=== PATIENT | female | born 1945 | race African-American/Black ===

== ENCOUNTER → 2016-07-01 | Outpatient (CLI) | payer OTHER ==
[~2016-07-01] MED LIST: ACETAMINOOPHEN-1 TAB PO; ACETAMINOPHEN PO; ACETAMINOPHEN PR; ACETAMINOPHEN650 M1 PO; ACTOS PO; ACULAR10 ML; ALBUTEROL 0.5ML INH; ALBUTEROL MININEB NEB; ALBUTEROL0.63 MG/3; ALBUTEROL0.83 MG/ML IH; ALBUTEROL17 G1 IH; ALBUTEROL17 GM; ALBUTEROL17 GM INH; AMARYL PO; ANTIVERT PO; APRESOLINE PO; ARTIFICIAL TEAR15 ML OP; ASPIRIN PO; ASPIRIN81 M1 PO; ASPIRIN81 M2 PO; ASPIRIN81 MG PO; ATIVAN PO; AVANDIA; BACLOFEN20 MG PO; BACTRIM DS TABL1 TAB PO; BAYER CHEWABLE81 MG PO; BIOFREEZE; BUMEX PO; BUTRANS TD; CITRATE OF MAG300 ML PO; CLEOCIN PO; COLACE PO; COMBIVENT MININEB; COSOPT1 UNI1 OP; CRESTOR PO; CRESTOR10 MG PO; CYANOCOBALAM1000 MCG PO; DEMADEX PO; DICLOFENAC-MIS1 EAC2 PO; DICYCLOMINE HCL20 MG PO; DIOVAN HCT 160-1 TAB; DIOVAN HCT 160-1 TAB PO; DORZOLAMIDE HCL10 M1 OP; DORZOLAMIDE HCL10 M1 OU; DUETACT; EPLERENONE25 MG PO; FLUCONAZOLE150 M1 PO; GABAPENTIN300 M2 PO; GABAPENTIN300 MG PO; GLIMEPIRIDE1 M1 PO; GLUCOPHAGE500 MG PO; HUMALOG MI100 UNIT/1; HUMALOG MI100 UNIT/1 SUBQ; HUMALOG MI100 UNIT/2 SQ; HUMALOG MI100 UNIT/2 SUBQ; HUMALOG MI100 UNIT/5; HUMALOG MIX 75/10 ML; HUMALOG MIX 75/10 ML SQ; HUMALOG MIX 75/10 ML SUBQ; HUMALOG MIX 75/23 M1 SQ; HUMALOG MIX 75/23 ML SUBQ; HUMULIN R100 U/ML SUBQ; HYDRALAZINE HC100 MG PO; HYDRALAZINE HCL50 MG PO; HYDROCHLOROTH12.5 M1 PO; HYDROCHLOROTHIA25 MG PO; HYDROCODON-ACE1 EAC5 PO; HYDROCODON-ACE1 EAC7 PO; HYDROCODON-ACE1 EACH PO; HYDROXYZINE HCL25 M1 PO; INSULIN PEN1 DIS.NDL INJ; ISMO20 MG; ISORDIL PO; K-DUR20 ME1 PO; KEPPRA500 M2 PO; LANTUS100 U/ML SQ; LASIX20 MG PO; LEVAQUIN PO; LEVEMIR FLEX PEN INJ; LEVEMIR FLEXPEN INJ; LEVEMIR FLEXPEN SUBQ; LEVOFLOXACIN500 MG PO; LIDODERM30 EA; LIPITOR40 MG PO; LISINOPRIL PO; LODINE PO; LOPRESSOR; LOPRESSOR PO; LORTAB 10-3251 EACH PO; LOW DOSE ASPIRI81 M1 PO; LYRICA PO; MECLIZINE HCL12.5 M2 PO; METFORMIN; METFORMIN PO; METHOCARBAMOL500 MG PO; METRONIDAZOLE PO; MIRALAX17 G2 PO; NABUMETONE PO; NEURONTIN100 MG PO; NIFEDICAL PO; NIFEDIPINE XR PO; NORCO 10/3251 TAB; NORVASC10 MG PO; OMNIPRED10 ML OP; ONGLYZA2.5 MG PO; ONGLYZA5 MG PO; OXYCODONE-ACET1 EAC1 PO; OXYGEN; OXYGEN IH; PAIN PATCH; PATIENT'S PHARMACY; PERCOCET10 PO; PHYSICIAN; POTASSIUM CHLO10 MEQ PO; PRAVASTATIN SOD40 MG PO; PRED FORTE1 ML OP; PRED FORTE1 ML OS; PRED FORTE1 ML OU; PRED MILD5 ML OU; PREDNISOLONE ACETATE OU; PREDNISONE EYE DROPS OP; PREDNISONE PO; PROAIR HFA INH; PROAIR HFA8.5 GM IH; PROAIR INH; PROCARDIA XL PO; PROMETHAZINE V240 ML PO; REQUIP0.5 MG PO; REQUIP1 MG PO; REQUIP5 MG PO; ROBAXIN PO; ROPINIROLE HCL0.5 MG PO; ROPINIROLE HCL4 MG PO; SANDOSTATIN LAR30 MG IM; SENNA PO; SULAR; SULAR PO; SULF-PRED 10-0.10 ML; SYMBICORT 16010.2 GM INH; SYMBICORT IH; SYMBICORT INH; TENORMIN25 M1 PO; TENORMIN25 MG PO; TIMOPTIC2.5 ML OP; TIMOPTIC2.5 ML OU; TIMOPTIC5 ML OU; TOPROL XL; TOPROL XL 50 MG50 M1 PO; TORSEMIDE10 MG PO; TRAMADOL HCL50 M1 PO; TRUSOPT10 ML OD; TRUSOPT5 ML OD; TRUSOPT5 ML OP; TRUSOPT5 ML OU; VASOCIDIN O5 ML OPTH OS; VICODIN 5/500 T1 TAB PO; VITAMIN B12-FO1 EACH PO; VOLTAREN100 GM TP; VOLTAREN50 MG PO; VOLTAREN75 MG PO; XODOL 10-300 T1 EACH PO; ZANAFLEX4 M1 PO; ZAROXYLYN PO; ZETIA PO; ZITHROMAX500 MG PO; ZOCOR; ZOCOR PO; ZOFRAN PO; [UNRECOGNIZED DRUG - OTHER]; [UNRECOGNIZED DRUG - OTHER] OP; [UNRECOGNIZED DRUG - OTHER] OP
--- NOTE | ~2016-07-01 | CT5 ---
[facility] A Service of [facility] RADIOLOGY TEXT RESULTS PATIENT: KASH ASCENCIO LOCATION: [facility] : 44 UNIT #: [id number] AGE: [address]: Levar Jorge MD SEX: F ORDER DR: [id number] [place] [id number] [facility]. [place], [place] [address] [id number] O MR#: [id number] [facility] #: [id number] NAME: KASH ASCENCIO. : 1945 SEX: F STUDY DATE/TIME: 07/01/2016 9:12 UNIT: [facility] ROOM: STUDY DESCRIPTION: CT Abdomen W Cont Attending Physician: Levar Jorge M.D. Ordering Physician: Levar Jorge M.D. Primary Care Physician: Wilman Mcghee M.D. MEDICAL IMAGING REPORT This report is preliminary unless electronic signature is present EXAM CT abdomen with contrast. INDICATION Follow up liver cancer. Restaging. Patient status post 3 months of chemotherapy. Observation for response to therapy and disease progression. PROCEDURE Contrast-enhanced CT of the abdomen. This CT exam was performed with one or more of the following radiation dose reduction techniques: automatic exposure control, adjustment of mA and/or kV according to patient size, and iterative reconstruction. COMPARISON 03/16/2016 FINDINGS Included lung bases predominately clear. Redemonstration multifocal hepatic metastatic disease. An index dominant lesion in the central liver measures 7.3 x 4.8 cm, previously 6.3 x 3.5 cm. Multiple other lesions have increased in size as well. It is impossible to exclude a new lesion. Spleen, adrenal glands, pancreas unremarkable. 2.5 cm cyst in the left kidney. There is a lap band in place. The included bowel loops are nondilated. No aggressive appearing bone lesion. IMPRESSION Interval progression of hepatic metastatic disease. Index lesions are larger than on the prior. [facility] A Service of [facility] RADIOLOGY TEXT RESULTS PATIENT: KASH ASCENCIO LOCATION: [facility] : 44 UNIT #: [id number] AGE: [address]: Levar Jorge MD SEX: F ORDER DR: Dictated by... David Dempsey M.D. THIS IS AN ELECTRONICALLY VERIFIED REPORT David Dempsey M.D. at 07/01/2016 4:51 PM RUD/jose TD: 07/01/2016 11:59 JOB #: [id number] MEDICAL IMAGING REPORT Page 1 of 1 COPY
[2016-07-01 12:06] LABS: POC - CREATININE 0.76 mg/dL (0.44-1.03); POC - GFR >60.0 mL/min (>60)
== END | disposition home or self-care (01) ==
LOC: CCAT 08:51
PROVIDERS: Internal Medicine Medical Oncology
DX: C22.8 Malignant neoplasm of liver, primary, unspecified as to type (principal); D64.9 Anemia, unspecified; D50.9 Iron deficiency anemia, unspecified; R91.1 Solitary pulmonary nodule; C78.7 Secondary malignant neoplasm of liver and intrahepatic bile duct
CPT/HCPCS: 74160; 82565; Q9967

== ENCOUNTER → 2016-07-07 | Outpatient (CLI) | payer OTHER ==
--- NOTE | ~2016-07-07 | CT57 ---
[facility] A Service of [facility] & [facility] RADIOLOGY TEXT RESULTS PATIENT: KASH ASCENCIO [facility] : 44 UNIT #: [id number] AGE: [address]: Levar Jorge MD SEX: F ORDER DR: [id number] [address] [address] [id number] O MR#: [id number] [facility] #: [id number] NAME: KASH ASCENCIO. : 1945 SEX: F STUDY DATE/TIME: 07/07/2016 17:02 UNIT: [facility] ROOM: STUDY DESCRIPTION: CT Chest Wo Cont Attending Physician: Levar Jorge M.D. Referring Physician: Levar Jorge M.D. Ordering Physician: Levar Jorge M.D. Primary Care Physician: Wilman Mcghee M.D. MEDICAL IMAGING REPORT This report is preliminary unless electronic signature is present EXAM CT chest INDICATIONS Hepatocellular carcinoma. Pulmonary nodule. Observation for metastatic disease. TECHNIQUE CTA of the thorax without contrast. Coronal and sagittal reconstructions were obtained. Please note that IV contrast was not administered due to lack of IV access. Multiple attempts were tried to gain IV access, however it was unsuccessful. This CT exam was performed with one or more of the following radiation dose reduction techniques: Automatic exposure control, adjustment of mA and/or kV according to patient size, and iterative reconstruction. COMPARISON CT abdomen 12/24/2015 and 07/01/2016. FINDINGS There is an irregular pulmonary nodule in the lingula measuring 1.6 x 1.5 cm. This is unchanged from the prior PET CT where it measured 1.7 x 1.7 cm. At that time, it had equivocal FDG uptake. There are a few tiny 2-3 mm nodules in the right lung; these are unchanged. Central airways are patent. No pathologically enlarged mediastinal or hilar lymph nodes. No pericardial or pleural effusion. There is diffuse metastatic disease throughout the liver. As indicated on the recent CT scan, this has increased in size from the prior study of 12/24/2015. [facility] A Service of [facility] & [facility] RADIOLOGY TEXT RESULTS PATIENT: KASH ASCENCIO LOCATION: [facility] : 44 UNIT #: [id number] AGE: [address]: Levar Jorge MD SEX: F ORDER DR: IMPRESSION 1. No evidence of disease progression in the chest. There is an irregular pulmonary nodule in the lingula that is similar to the prior study. 2. No new or suspicious findings in the chest. 3. Please refer to the separate dictated report of the abdomen for details of the disease progression in the liver. Dictated by... Nic Mendez M.D. THIS IS AN ELECTRONICALLY VERIFIED REPORT Nic Mendez M.D. at 07/08/2016 7:54 AM GORDON/marylou TD: 07/07/2016 22:19 JOB #: [id number] MEDICAL IMAGING REPORT Page 1 of 1 COPY
--- NOTE | ~2016-07-07 | CR48 ---
[facility] A Service of [facility] & [facility] RADIOLOGY TEXT RESULTS PATIENT: KASH ASCENCIO [facility] : 44 UNIT #: [id number] AGE: [address]: Levar Jorge MD SEX: F ORDER DR: [id number] [facility] [address] [facility]. [place], [place] [address] [id number] O MR#: [id number] [facility] #: [id number] NAME: KASH ASCENCIO. : 1945 SEX: F STUDY DATE/TIME: 07/07/2016 14:32 UNIT: [facility] ROOM: STUDY DESCRIPTION: CR Bone Survey Attending Physician: Levar Jorge M.D. Referring Physician: Levar Jorge M.D. Ordering Physician: Levar Jorge M.D. Primary Care Physician: Wilman Mcghee M.D. MEDICAL IMAGING REPORT This report is preliminary unless electronic signature is present EXAM Bone survey 07/07/2016 1432 hours CLINICAL HISTORY Iron deficiency anemia, malignant neoplasm of the liver, history of brain tumor, bilateral lower extremity pain, lateral old left femoral pain unknown primary. COMPARISON PET/CT 01/06/2016 CT chest 07/07/2016, CT abdomen 07/01/2016 and nuclear medicine bone scan 12/24/2015. FINDINGS Lateral view of the skull demonstrates a prior craniotomy site with fixators present. There is hyperostosis frontalis interna but no lytic or blastic lesion. Review of head CT at bone window settings 05/03/2016 demonstrates no definite acute bone lesion. Chest film demonstrates emphysematous bleb or bulla at the left lung base. There is no definite acute bone lesion. The right humerus is normal. Left humerus demonstrates degenerative changes of the shoulder. No definite lytic or blastic lesion is seen on plain film. There was uptake on the PET/CT in the midshaft humerus without definite plain film correlate on 1 view. Pelvis film demonstrates enthesopathic changes over the iliac crests and the greater trochanter on the right. There is no definite lytic or blastic lesion. The left femur, there is no definite femoral lesion. There is no correlate to the faint activity seen on bone scan 12/24/2015. No appreciable change in the appearance of the femur from 12/24/2015. [facility] A Service of [facility] & [facility] RADIOLOGY TEXT RESULTS PATIENT: KASH ASCENCIO LOCATION: [facility] : 44 UNIT #: [id number] AGE: [address]: Levar Jorge MD SEX: F ORDER DR: Right femur is negative. Cervical spine demonstrates multilevel degenerative disc disease with spurring and facet arthropathy. No lytic or blastic lesion. The thoracic spine demonstrates diffuse idiopathic skeletal hyperostosis without definite lytic or blastic lesion. Lumbar spine demonstrates no lytic or blastic lesion. No significant disc height loss or fracture. IMPRESSION 1. Negative bone survey. There are no definite lytic or blastic lesions. There are degenerative changes as described above. Specifically, there is no definite correlate for the MR and nuclear medicine finding in the midshaft humerus. 2. There is no definite lesion seen in the distal femur or faint activity was seen on prior bone scan. 3. No definite new lesions. Dictated by... Kelly Tejeda M.D. THIS IS AN ELECTRONICALLY VERIFIED REPORT Kelly Tejeda M.D. at 07/08/2016 2:30 PM Paige TD: 07/08/2016 10:31 JOB #: [id number] MEDICAL IMAGING REPORT Page 1 of 1 COPY
[2016-07-07 16:11] LABS: POC - CREATININE 0.95 mg/dL (0.44-1.03); POC - GFR >60.0 mL/min (>60)
== END | disposition home or self-care (01) ==
LOC: CCAT 14:11
PROVIDERS: Internal Medicine Medical Oncology
DX: C22.8 Malignant neoplasm of liver, primary, unspecified as to type (principal); D50.9 Iron deficiency anemia, unspecified; R91.1 Solitary pulmonary nodule; M47.812 Spondylosis without myelopathy or radiculopathy, cervical region
CPT/HCPCS: 71250; 77075; 82565

== ENCOUNTER 2016-07-08 21:50 | Inpatient (IN) | payer OTHER ==
--- NOTE | ~2016-07-08 | CO ---
Unit #: [id number] #: [id number] Patient: KASH ASCENCIO [id number] [address] [place], [place] [address] [id number] I MR#: [id number] NAME: KASH ASCENCIO ROOM: 327 Age: 71 Sex: F Admission Date: 07/08/2016 : 1945 Attending Physician: Suzanne Nieves M.D. Primary Care Physician: Wilman Mcghee M.D. Consultation Date: 07/09/2016 CONSULTATION REPORT REASON FOR CONSULT Metastatic neuroendocrine tumor, please evaluate. 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 She was treated with radiation to the left humerus and Sandostatin monthly injections and responded well initially but recently about a month ago came back and was showing signs and symptoms of hepatic insufficiency with multiple bruises, so she was treated with vitamin K and sent for re-evaluation. CT scan of the abdomen showed progressive liver metastases and a bone survey showed nearly complete resolution of the left humerus mass lesion. Presents now and states that when she went for those scans they had difficulty starting an IV in the left arm, so they went to the right arm and they had to call somebody from the emergency room who kept on trying and went very deep. She felt severe pain and subsequently the CT scan was done without contrast but since then she started having severe pain in the right upper arm. PAST MEDICAL HISTORY Past history is mainly remarkable for this neuroendocrine tumor, status post radiation and Sandostatin LAR therapy. 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 FAMILY HISTORY Negative for unexplained cancers. SOCIAL HISTORY Nonsmoker. No alcohol usage. Has a very supportive family. CHRONIC MEDICATIONS 1. Hydralazine. 2. Neurontin. 3. Vicodin. 4. Requip. 5. Amaryl. ALLERGIES No known allergies. REVIEW OF SYSTEMS Mainly tiredness, weakness, swelling and pain in the right upper arm. Unit #: [id number] #: [id number] Patient: KASH ASCENCIO Otherwise, six or eight systems were within normal limits. PHYSICAL EXAMINATION GENERAL: On exam, she is awake, alert, complaining of severe pain right upper arm. No supraclavicular, axillary, or groin nodes. LUNGS: Essentially clear. CARDIOVASCULAR: Distant S1, S2. ABDOMEN: Liver is 13 cm midclavicular line, mildly tender, and by percussion only because the abdominal wall is thick, difficult to palpate the liver. CENTRAL NERVOUS SYSTEM: Grossly intact. PELVIC: Not performed. BREASTS: Not performed. EXTREMITIES: Right upper extremity exam shows possible small hematoma and lower extremity exam on the right posterior side there is a palpable mass and there are multiple bruises. HOSPITAL COURSE This 71 year old lady with stage IV neuroendocrine tumor involving the liver and left humerus, status post radiation and Sandostatin LAR therapy for six to eight months has done fairly well until recently. There is evidence of progressive disease in the liver. The left humerus looks very well per scan but now she has what appears to be multiple bruises on the legs and a possible hematoma on the right upper extremity where multiple attempts were made to start on IV. DIAGNOSTIC STUDIES LABORATORY: CBC: Hemoglobin 6.1, hematocrit 19.3, white count 5600, platelets 45,000. Sodium 142, potassium 4, chloride 109, CO2 of 23, glucose 146, BUN 25, creatinine 0.7. Pro time 19.5 with INR of 1.8. IMPRESSION Coagulopathy related to hepatic metastatic disease in this lady with stage IV neuroendocrine tumor with evidence of progressive disease in the liver and multiple bruises, hematomas. The one significant one is right upper extremity where it is tender to touch. PLAN Will agree with packed red blood cells. Will infuse fresh frozen plasma 2 units at 100 mL an hour to correct the pro time. Also, give vitamin K 10 mg in 30 mL over 15-30 minutes hoping to achieve correction of the coagulopathy, although with such extensive liver metastases it is going to be difficult. After the transfusion if she develops debility, we may consider chemotherapy. Dictated by... Cassandra Hoang/bambi TD: 07/11/2016 12:36 JOB #: [id number] Unit #: [id number] #: [id number] Patient: KASH ASCENCIO CONSULTATION REPORT Page 1 of 1 X Levar Jorge MD CONSULTATION REPORT
--- NOTE | ~2016-07-08 | DS ---
Unit #: [id number] #: [id number] Patient: KASH ASCENCIO [id number] [address] [address] [id number] I MR#: [id number] NAME: KASH ASCENCIO. ROOM: 327 Age: 71 Sex: F Admission Date: 07/08/2016 : 1945 Discharge Date: Attending Physician: Suzanne Nieves M.D. Primary Care Physician: Wilman Mcghee M.D. DISCHARGE SUMMARY DISCHARGE DIAGNOSES 1. Metastatic stage 4 neuroendocrine tumor involving liver and left humerus: Patient had radiation and Sandostatin LAR therapy for six to eight months. 2. Pancytopenia. 3. Severe anemia, most likely secondary to cancer and chemotherapy versus acute bleeding. 4. Right upper extremity hematoma. 5. Severe thrombocytopenia. 6. Morbid obesity. 7. History of diabetes mellitus type 2, uncontrolled. 8. Hypertension. 9. Hyperlipidemia. 10. History of cerebrovascular accident with left sided weakness. 11. Glaucoma. 12. Gastritis. 13. History of grain tumor, benign. 14. Degenerative disc disease. 15. Intractable left arm pain. CONSULTATIONS 1. Dr. Jorge. 2. Dr. Greer. PROCEDURES None. LAB DATA Glucose 173, sodium 143, potassium 4.5, creatinine 0.9, AST 49, AL 40, alkaline phosphatase 198, total bilirubin 1.8, total protein 5.7, albumin 3.7, WBC 8.2, hemoglobin 7.5, platelets 56. ALLERGIES Lisinopril, lactose and metformin. DISCHARGE MEDICATIONS 1. Albuterol one puff inhalation q.4 p.r.n. shortness of breath. 2. Prednisone eyedrops b.i.d. in the left eye. 3. Gabapentin 300 three times daily. 4. Requip 0.5 mg p.o. b.i.d. 5. Trusopt one drop bilaterally b.i.d. ophthalmic solution. 6. Colace 100 p.o. b.i.d. 7. MiraLAX 17 grams p.o. daily. 8. Hydralazine 100 b.i.d. Unit #: [id number] #: [id number] Patient: KASH ASCENCIO 9. [place]irie 10 mg q.6 p.r.n. pain. 10. Amaryl 1 mg p.o. daily. HOSPITALIZATION COURSE 71-year-old admitted because of axial bruising and anemia. Stage 4 metastatic neuroendocrine tumor involving metastases to liver and left humerus: Patient did receive radiation and Sandostatin LAR treatment for six to eight months. Currently, her hemoglobin is severely low requiring multiple transfusions. She has severe thrombocytopenia requiring multiple platelet transfusions. She is also excessively bleeding. She bled in her right arm causing right arm hematoma. Vascular saw the patient. They think she did not compromise any blood supply to the arm. Rocephin has been started to rule out cellulitis but, currently, she does not look infected there. Rocephin will be discontinued. Because of progressive disease and progressive pancytopenia, Dr. Jorge talked to the family. They decided on hospice. Today, patient will be discharged home with hospice. Severe pancytopenia secondary to cancer and also from treatment: Patient received multiple transfusions. Currently, hemoglobin is 7.5, platelets 56. Right upper extremity hematoma from severe thrombocytopenia: Vascular saw the patient. Patient was on Rocephin. I am going to discontinue because she doesn't look infected. Diabetes and hypertension, stable. Discussed with son and other family members. They want her to take home with hospice. Dr. Jorge talked to the family extensively on 07/14/2016. They agree for hospice. Discharge home with hospice. Discharge time taken is 40 minutes. Dictated by... Cassandra Catherine TD: 07/15/2016 11:42 JOB #: [id number] DISCHARGE SUMMARY Page 1 of 1 X Suzanne Nieves MD X DISCHARGE SUMMARY
--- NOTE | ~2016-07-08 | OR ---
Unit #: [id number] #: [id number] Patient: KASH ASCENCIO [id number] [address] [place], [place] [address] [id number] I MR#: [id number] NAME: KASH ASCENCIO ROOM: [facility] Date of Procedure: 07/09/2016 Admission Date: 07/09/2016 Surgeon: Ronaldo Calix M.D. : 1945 Attending Physician: Kendal Lopez M.D. Primary Care Physician: Wilman Mcghee M.D. OPERATIVE REPORT PRIMARY CARE PHYSICIAN Wilman Mcghee M.D. PREOPERATIVE DIAGNOSES The patient has a history of increasing fatigue and at admission, hemoglobin of 6.1, her baseline hemoglobin in April was between 11 and 12. There is no history of overt GI bleed in the form of hematemesis, melena, or hematochezia. PROCEDURE PERFORMED Upper gastrointestinal endoscopy. POSTOPERATIVE DIAGNOSIS There were mild distal erosive esophagitis with some whitish exudates in this area. This was biopsied, otherwise examination normal up to third part of duodenum. RECOMMENDATIONS There is no potential source of blood loss in the upper GI tract. The patient is too frail for colonoscopic examination at the present time. We will therefore transfuse the patient and monitor hemoglobin and hematocrit. PROCEDURE SEDATION Total of 2 mg Versed was used throughout the procedure. DESCRIPTION OF PROCEDURE Following detailed explanation of the potential risks and complications of an upper endoscopy, namely perforation, bleeding, and complication related to sedation, the patient was brought to GI lab and the patient was laid in the left lateral decubitus position. The procedure was done in the emergency room at bedside. Lubricated tip of the Olympus video upper endoscope was passed through bite block into the proximal esophagus under direct vision. The entire esophageal mucosa was examined. The patient was noted to have distal esophagitis. This was primarily 1 or 2 cm above the Z-line in the form of whitish exudates. No stricture was seen. The scope was then advanced into the gastric cavity and the latter was insufflated. Mucosa of the fundus, body, and antrum examined and appeared unremarkable. Pylorus was intubated with visualization of normal duodenal bulb and second and third part of the duodenum. Upon withdrawal and retroflexion, incisura, cardia, and greater curve examined and no additional findings noted. The scope was withdrawn in the distal esophagus. Entire esophageal mucosa was examined all the way up to Unit #: [id number] #: [id number] Patient: KASH ASCENCIO pharynx. No additional findings noted. The patient tolerated the procedure without any postprocedure complications. Dictated by... Cassandra Gonzales/juan TD: 07/10/2016 01:00 JOB #: [id number] CC: Cassandra Reeder M.D. Osawaru Omoruyi, M.D. OPERATIVE REPORT Page 1 of 1 X Ronaldo Calix MD X PROCEDURE OPERATIVE NOTE
--- NOTE | ~2016-07-08 | EKG ---
PATIENT: KASH ASCENCIO UNIT #: [id number] Ventricular Rate: 79 BPM Atrial Rate: 79 BPM P-R Interval: 138 ms QRS Duration: 84 ms Q-T Interval: 396 ms QTC Calculation(Bezet): 454 ms P Forbes: 43 degrees Calculated R Forbes: 5 degrees Calculated T Forbes: 51 degrees Diagnosis Line: Normal sinus rhythm Diagnosis Line: Normal ECG Diagnosis Line: When compared with ECG of 03-MAY-2016 03:54, Diagnosis Line: Criteria for Septal infarct are no longer Present Diagnosis Line: Confirmed by MJ CASTANON MD ([id number]) on 07/10/2016 Diagnosis Line: 4:29:40 PM INTERPRETING MD: LG ALMONTE
--- NOTE | ~2016-07-08 | HP ---
Unit #: [id number] #: [id number] Patient: KASH ASCENCIO [id number] [address] [address] [id number] I MR#: [id number] NAME: KASH ASCENCIO ROOM: 54312 Age: 71 Sex: F Admission Date: 07/09/2016 : 1945 Attending Physician: Kendal Lopez M.D. Primary Care Physician: Wilman Mcghee M.D. HISTORY AND PHYSICAL CHIEF COMPLAINT 1. Excessive bruising. 2. Symptomatic anemia. HISTORY OF PRESENT ILLNESS The patient is a 69-year-old female with a history of hypertension, hyperlipidemia, history of cerebrovascular accident, benign brain tumor and history of questionable liver cancer. The patient came to the emergency room for excessive bleeding. She was seen a day prior for cancer screening. No evidence of progression on CT scan of her chest and no new suspicious lesions. She does have bruises all over her extremities and her buttock. Bruising has been present for the past one week. The patient also complains of right antecubital area redness and swelling for the past two days. She states that this was the site for instrumentation for possible attempt to place a PICC line. Other than that, she describes tenderness over that place and the place is painful to touch. The patient is status post EGD per Dr. Ronaldo Calix and is somewhat drowsy. History is obtained from patient, collateral sources, and family members who are present at the time of this dictation. PAST MEDICAL HISTORY 1. Diabetes mellitus. 2. Hypertension. 3. Hyperlipidemia. 4. History of cerebrovascular accident. 5. Residual left-sided weakness. 6. Asthma. 7. Glaucoma. 8. Gastritis. 9. Morbid obesity. 10. Benign brain tumor. 11. Degenerative disk disease. 12. Intractable left arm pain. PAST SURGICAL HISTORY 1. Cardiac catheterization in 2007. 2. Evidence of benign brain tumor. 3. Cholecystectomy. 4. Hysterectomy. 5. Left ear surgery. 6. Lap band surgery. SOCIAL HISTORY The patient lives with her son and . No tobacco use or alcohol use Unit #: [id number] #: [id number] Patient: KASH ASCENCIO or illicit drug use. CODE STATUS Unable to ascertain at this time, but from previous documentation she is documented as a full code. FAMILY HISTORY Noted for emphysema in her daughter. ALLERGIES Lisinopril and metformin. HOME MEDICATIONS 1. Hydralazine 100 mg p.o. b.i.d. 2. Gabapentin 300 mg p.o. b.i.d. 3. Onglyza 5 mg p.o. q. morning. 4. [place] 10/325 mg 1 tablet q.6 h. 5. Ventolin 1 puff inhalation q.4 h. 6. Trusopt 1 drop each eye daily. 7. Glimepiride 1 mg p.o. daily. 8. Requip 0.5 mg p.o. b.i.d. 9. Lipitor 40 mg p.o. q. morning. 10. Vasocidin. REVIEW OF SYSTEMS She describes pain in her right arm antecubital fossa. She is drowsy at this time, so review of systems is limited, even though she states that she has been having skin bumps all over her lower extremities and her buttock. Limited at this time. PHYSICAL EXAMINATION GENERAL: The patient was drowsy, but in no acute distress. VITALS: Blood pressure 146/56, pulse 72, respiratory rate 13, temperature 97.0. HEENT: Erythematous. Pupils are equal and reactive to light and accommodation. NECK: Supple without thyromegaly. CHEST: Breath sounds in the lung bases posteriorly. HEART: First and second heart sounds only. ABDOMEN: Full. Moves with respiration. Soft. EXTREMITIES: She has some tenderness and redness over her right antecubital fossa. There is an area measuring about 10 cm x 6 cm, soft and warm to touch. She had an area of her left thigh with some ecchymosis and what feels like a subcutaneous hematoma. She had an area of her right upper thigh which also showed an area of ecchymosis and recent subdermal bleeding. LYMPH: No lymphadenopathy that I could appreciate. NEUROLOGIC: FINGER GRIP MACHINE OPERATOR, awake and alert times two. She is really drowsy and post Versed 2 mg for conscious sedation. PSYCHIATRIC: Limited at this time. DIAGNOSTIC STUDIES LABORATORY: CBC and BMP which showed hemoglobin 6.1, hematocrit 19.2, platelets 45, white blood cell count 5.6. She also had chemistries, glucose 146, BUN 25, creatinine 0.7, sodium 142, potassium 4.0, chloride 109, bicarbonate 23, calcium 8.1, albumin 3.2, AST 43, ALT 45 and alkaline phosphatase 233. Unit #: [id number] #: [id number] Patient: KASH ASCENCIO ASSESSMENT 1. Bruising, thrombocytopenia, probably secondary to underlying malignancy and process. Hematology and oncology have been consulted. 2. Anemia. She is status post blood transfusion. Will check a CBC and BMP in the morning. 3. Right antecubital fossa swelling and redness. I put her on IV Rocephin 1 g q.24 h. for presumed infection. I will get a right upper extremity Doppler to evaluate for thrombosis of sorts and will address accordingly. She is currently hypercoagulable with an INR of 1.8. 4. Liver cancer. I do not see a diagnosis anywhere but from the family's history. There seems to be a history of liver cancer. Again, will consult oncology to determine with status of this, if it truly exists. 5. Coagulopathy. Probably secondary to malignant process going on. 6. Hypertension. She is currently somewhat hypotensive from anesthesia. 7. Family history of CVA with left-sided residual weakness. Stable at this time. 8. Diabetes mellitus type 2. Put her on Accu-Cheks morning and evening and get low-dose sliding scale. 9. Pain. For her pain we will continue her home pain medication. She may require IV p.r.n., which I will be more than happy to give. Dictated by Cassandra Alvarado/minal TD: 07/09/2016 11:58 JOB #: [id number] CC: Wilman Mcghee M.D. HISTORY AND PHYSICAL Page 1 of 1 X Kendal Lopez MD HISTORY AND PHYSICAL
--- NOTE | ~2016-07-08 | US140 ---
[facility]. [facility] A Service of [facility] RADIOLOGY TEXT RESULTS PATIENT: KASH ASCENCIO LOCATION: [facility] 327-01 : 44 UNIT #: [id number] AGE: [address]: Kendal Lopez MD SEX: F ORDER DR: [id number] [facility] [address] [place], [place] [address] [id number] I MR#: [id number] Acc #: [id number] NAME: KASH ASCENCIO. : 1945 SEX: F STUDY DATE/TIME: 07/09/2016 12:02 UNIT: CEDOF ROOM: 91349 STUDY DESCRIPTION: US UE Veins Unilat or Ltd Stdy Attending Physician: Kendal Lopez M.D. Ordering Physician: Kendal Lopez M.D. Primary Care Physician: Wilman Mcghee M.D. MEDICAL IMAGING REPORT This report is preliminary unless electronic signature is present EXAM Right upper extremity venous duplex. DATE OF EXAM 07/09/2016 HISTORY Right upper extremity pain and swelling for 2 days. Right upper extremity IV placement attempt at 2 days ago, arm has been swollen since. Evaluate for deep vein thrombosis. FINDINGS Dale-scale images of the right upper extremity were obtained as well as Doppler waveform, spectral analysis and color flow Doppler imaging. There is normal blood flow and compressibility in the right internal jugular vein as well as right subclavian, axillary, brachial, cephalic and basilic veins. There is no evidence of deep vein thrombosis in the right upper extremity. The right upper extremity edema is noted. IMPRESSION 1. No evidence of deep vein thrombosis in the right upper extremity. 2. Right upper extremity edema. Dictated by... Andrey Ji M.D. THIS IS AN ELECTRONICALLY VERIFIED REPORT Andrey Ji M.D. at 07/10/2016 1:11 PM ARNAV/carol TD: 07/09/2016 15:13 JOB #: [id number] [facility] A Service of [facility] / [facility] RADIOLOGY TEXT RESULTS PATIENT: KASH ASCENCIO LOCATION: [facility] 327-01 : [birth year] UNIT #: [id number] AGE: [address]: Kendal Lopez MD SEX: F ORDER DR: MEDICAL IMAGING REPORT Page 1 of 1 COPY
--- NOTE | ~2016-07-08 | CO ---
Unit #: [id number] #: [id number] Patient: KASH ASCENCIO [id number] [address] [address] [id number] I MR#: [id number] NAME: KASH ASCENCIO. ROOM: 327 Age: 71 Sex: F Admission Date: 07/08/2016 : 1945 Attending Physician: Suzanne Nieves M.D. Primary Care Physician: Wilman Mcghee M.D. Consultation Date: 07/11/2016 CONSULTATION REPORT DICTATED FOR Brittny Greer M.D. REASON FOR CONSULTATION Right upper extremity cellulitis. HISTORY OF PRESENT ILLNESS The onset was 2 days ago. Location is right upper extremity and the duration is ongoing, it has been aggravated. The patient was seen 2 days ago for a CT scan outpatient for cancer screening due to multiple sticks in her right arm due to very difficult access. She continued to have swelling, hot to the touch, and very painful overnight. She was brought to the emergency room for this reason. PAST MEDICAL HISTORY 1. Diabetes. 2. Hypertension. 3. Hyperlipidemia. 4. History of CVA. 5. Asthma. 6. Gastritis. 7. Residual left-sided weakness. 8. Glaucoma. 9. Morbid obesity. 10. Intractable left arm pain. 11. Benign brain tumor. 12. Degenerative disk disease. ALLERGIES She is allergic to JAREN inhibitors, metformin, and lisinopril. HOME MEDICATIONS Hydralazine 100 mg p.o. b.i.d., gabapentin 300 mg p.o. b.i.d., Onglyza 5 mg p.o. every morning, [place] 10/325 one tablet every 6 hours, Ventolin 1 puff inhalation every 4 hours, Trusopt 1 drop each eye daily, glimepiride 1 mg p.o. daily, Requip 0.5 mg p.o. b.i.d., Lipitor 40 mg p.o. daily, Vasocidin dosage unknown. SOCIAL HISTORY She lives with her son and . She does not work. She is a nonsmoker. No alcohol. No drug use. FAMILY HISTORY Unit #: [id number] #: [id number] Patient: KASH ASCENCIO She has a family history of emphysema known in her daughter. Denies any history with her parents. REVIEW OF SYSTEMS CONSTITUTIONAL: No fever, chills, or sweats. EYES: No recent visual problems. EAR, NOSE, MOUTH, AND THROAT: No ear pain, nasal congestion, or sore throat. RESPIRATORY: No shortness of breath or cough. CARDIOVASCULAR: No chest pain, palpitations, or syncope. GASTROINTESTINAL: No nausea, vomiting, or diarrhea. GENITOURINARY: No hematuria. HEMATOLOGY AND LYMPHATIC: She is positive for bruising in her bilateral lower extremities and right forearm, no swollen lymph glands. ENDOCRINE: No excessive thirst or excessive hunger. MUSCULOSKELETAL: Denies back pain, neck pain, joint pain, muscle pain, or decreased range of motion. INTEGUMENTARY: She does have bruising to her right upper extremity with pain, no sores or nonhealing wounds. NEUROLOGIC: Alert and oriented x3. PSYCHIATRIC: No anxiety, depression, or suicidal thoughts or ideation. PHYSICAL EXAM VITAL SIGNS: Temperature is 97.6, heart rate is 70, respirations 18, O2 saturation is 100%. GENERAL APPEARANCE: She is a well-developed, well-nourished, in no acute distress. HEENT: She is normocephalic. Pupils equal, round, and reactive to light, she is unable to see due to issues with glaucoma. NECK: Supple, nontender with lymphadenopathy, masses, thyromegaly. No carotid bruits noted. CARDIAC: Regular rate and rhythm. No murmurs. No peripheral edema, cyanosis, or pallor. LUNGS: Clear to auscultation bilaterally. ABDOMEN: Positive bowel sounds. Soft, nontender, no distention. No masses or hepatomegaly. MUSCULOSKELETAL: She moves all extremities, full range of motion. Normal muscular development. EXTREMITIES: Upper extremities; right upper extremity has positive ecchymosis, positive erythema, positive tender to palpation, approximately 10 cm x 6 cm area of the right inner arm with positive edema from axilla to wrist on the right upper extremity. Normal left upper extremity. Lower extremities, no deformity noted. No edema. VASCULAR: Palpable radial pulses bilaterally. Femoral pulses palpable bilaterally. Pedal pulses palpable bilaterally. INTEGUMENTARY: Warm and dry. No sores or open healing wounds. No hemosiderin disposition. NEUROLOGIC: Cranial nerves II through XII grossly intact. Normal strength and sensation bilaterally. PSYCHIATRIC: Oriented to person, place, and time. Demonstrates good judgment and reason. DIAGNOSTIC STUDIES IMAGING STUDIES: There is an ultrasound of the upper extremity veins of the right upper extremity performed on 07/09/2016 due to right upper extremity pain and swelling for 2 days. There is no evidence of DVT in the right upper extremity. Unit #: [id number] #: [id number] Patient: KASH ASCENCIO LABORATORY RESULTS: Glucose 136, BUN 27, creatinine 0.9, EGFR 74.1, sodium 141, potassium 3.9, chloride 109, CO2 25. AST 38, ALT 35. PT 14.8, INR 1.4, PTT 29.6. White blood cell count 5.4, red blood cell count 2.71, hemoglobin 7.3, hematocrit 22.4, and platelet count 40. ASSESSMENT Right upper extremity cellulitis. PLAN Plan is to do Jaren wraps to the right upper extremity from hand to axilla. Antibiotics are to be ordered per the primary physician. The patient is to elevate the right upper extremity to help decrease edema. Vascular will be available if needed to follow in this situation or if any questions or concerns arise. Thank you for allowing us to participate in this patient's care and for this consult. Should she have any questions or concerns, please feel free to give us a call at [phone], [facility]. Dictated by... Cassandra Cherry/juan TD: 07/12/2016 06:09 JOB #: [id number] CONSULTATION REPORT Page 1 of 1 X Brittny Greer MD X CONSULTATION REPORT
--- NOTE | ~2016-07-08 | CR72 ---
[facility]. [facility] A Service of [facility] & [facility] RADIOLOGY TEXT RESULTS PATIENT: KASH ASCENCIO LOCATION: [facility] 327-01 : 44 UNIT #: [id number] AGE: [address]: Kendal Lopez MD SEX: F ORDER DR: [id number] [facility] [address] [place], [place] [address] [id number] I MR#: [id number] Acc #: [id number] NAME: KASH ASCENCIO. : 1945 SEX: F STUDY DATE/TIME: 07/08/2016 21:53 UNIT: CEDOF ROOM: 90313 STUDY DESCRIPTION: CR Chest Single View Portable Attending Physician: Kendal Lopez M.D. Ordering Physician: Jerrell Guerrero M.D. Primary Care Physician: Wilman Mcghee M.D. MEDICAL IMAGING REPORT This report is preliminary unless electronic signature is present EXAM Portable chest. INDICATIONS Generalized weakness, mild congestion, worse over the past 2 days. COMPARISON 05/03/2016 FINDINGS The lungs are stable in appearance. There is no acute infiltrate. The heart size is stable. There are degenerative changes of the shoulders. Lap-band. IMPRESSION No active disease. Dictated by... Hawk Lux M.D. THIS IS AN ELECTRONICALLY VERIFIED REPORT Hawk Lux M.D. at 07/11/2016 8:03 AM YASIR/ke TD: 07/09/2016 06:43 JOB #: [id number] MEDICAL IMAGING REPORT Page 1 of 1 COPY
[~2016-07-08 21:50] MED LIST changes: -ALBUTEROL 0.5ML INH; -COLACE PO; -HYDRALAZINE HC100 MG PO; -HYDROXYZINE HCL25 M1 PO; -K-DUR20 ME1 PO; -MIRALAX17 G2 PO; -ONGLYZA5 MG PO; -OXYGEN; -PERCOCET10 PO; -PRED FORTE1 ML OS; -SENNA PO; -TRUSOPT10 ML OD; -ZOFRAN PO
[2016-07-09 00:22] LABS: URINE SOURCE CLEAN CATCH
[2016-07-09 00:26] LABS: CULTURE INDICATED? YES; URINE APPEARANCE CLOUDY; URINE BACTERIA AUWI 2+ (NEGATIVE); URINE BLOOD NEG (NEG); URINE COLOR DK YELLOW; URINE GLUCOSE NEG (NEG); URINE KETONE TRACE (NEG); URINE LEUKOCYTE ESTERASE TRACE (NEG); URINE NITRATE NEG (NEG); URINE PROTEIN TRACE (NEG); URINE SPECIFIC GRAVITY 1.019 (1.003-1.035); URINE SQUAMOUS EPITHELIAL CELL MOD /[HPF]
[2016-07-09 00:32] LABS: URINE BILIRUBIN NEG (NEG)
[2016-07-09 01:15] LABS: POC - CKMB <1.0 ng/mL (0.0-7.9); POC - TROPONIN <0.05 ng/mL (<=0.05)
[2016-07-09 01:18] LABS: BASOPHIL% 0.5 % (0-2.5); EOSINOPHIL% 0.8 % (0.0-7.0); HEMATOCRIT 19.3 % (35.0-45.0); LYMPHOCYTE# 1.3 X10e3 (1.0-3.5); LYMPHOCYTE% 23.1 % (17.0-45.0); MEAN CELL VOLUME 79.8 FL (83-96); MEAN CORPUSCULAR HEMOGLOBIN 25.4 PG (28-34); MEAN CORPUSCULAR HGB CONC 31.8 g/dL (30-36); MEAN PLATELET VOLUME 8.9 FL (6.5-11.5); MONOCYTE# 0.4 X10e3 (0-1.0); MONOCYTE% 7.2 % (3.0-12.0); NEUTROPHIL# 3.8 X10e3 (1.5-7.1); NEUTROPHIL% 68.4 % (40-75); RED BLOOD COUNT 2.42 X10e (3.90-5.30); RED CELL DISTRIBUTION WIDTH 17.1 % (11.0-15.5); WHITE BLOOD COUNT 5.6 X10e3 (4.0-10.5)
[2016-07-09 01:22] LABS: DIFF IND YES; HEMOGLOBIN 6.1 gm/dL (12.0-16.0); PLATELET COUNT 45 X10e3 (140-420)
[2016-07-09 01:31] LABS: ALBUMIN SERUM 3.2 g/dL (3.5-5.0); BILIRUBIN, DIRECT 0.4 mg/dL (0.0-0.2); BILIRUBIN,INDIRECT 1.5 mg/dL (0.0-0.9); BILIRUBIN,TOTAL 1.9 mg/dL (0.2-2.0); BUN/CREATININE RATIO 35.71; CALCIUM SERUM 8.1 mg/dL (8.4-10.2); CREATININE SERUM 0.7 mg/dL (0.6-1.4); GLOM FILT RATE Estimated 100.3 mL/min (>60); PROTEIN TOTAL SERUM 5.7 g/dL (6.0-8.3)
[2016-07-09 01:36] LABS: ANISOCYTOSIS SL; MICROCYTOSIS MOD; PLATELET ESTIMATE DECREASED (NORMAL)
[2016-07-09 01:37] LABS: POIKILOCYTOSIS SL; SCHISTOCYTES PRESENT
[2016-07-09 02:32] LABS: INR 1.8; PROTHROMBIN TIME (PATIENT) 19.5 SECONDS (9.6-11.5)
[2016-07-09 02:33] LABS: PARTIAL THROMBOPLASTIN TIME 36.2 SECONDS (23.5-31.3)
[2016-07-10 05:31] LABS: HEMATOCRIT 19.2 % (35.0-45.0); MEAN CELL VOLUME 82.3 FL (83-96); MEAN CORPUSCULAR HEMOGLOBIN 26.3 PG (28-34); MEAN PLATELET VOLUME 9.6 FL (6.5-11.5); RED BLOOD COUNT 2.33 X10e (3.90-5.30); RED CELL DISTRIBUTION WIDTH 16.2 % (11.0-15.5)
[2016-07-10 05:42] LABS: HEMOGLOBIN 6.1 gm/dL (12.0-16.0)
[2016-07-10 05:46] LABS: INR 1.4; PARTIAL THROMBOPLASTIN TIME 29.6 SECONDS (23.5-31.3)
[2016-07-10 06:35] LABS: ALBUMIN SERUM 2.9 g/dL (3.5-5.0); BILIRUBIN,TOTAL 1.3 mg/dL (0.2-2.0); CALCIUM SERUM 7.9 mg/dL (8.4-10.2); CREATININE SERUM 0.9 mg/dL (0.6-1.4); GLOM FILT RATE Estimated 74.1 mL/min (>60); POTASSIUM 3.9 mmol/L (3.5-5.1); PROTEIN TOTAL SERUM 5.2 g/dL (6.0-8.3)
[2016-07-10 18:31] LABS: HEMATOCRIT 23.3 % (35.0-45.0); HEMOGLOBIN 7.7 gm/dL (12.0-16.0); MEAN CELL VOLUME 81.4 FL (83-96); MEAN CORPUSCULAR HEMOGLOBIN 26.9 PG (28-34); MEAN PLATELET VOLUME 9.3 FL (6.5-11.5); RED BLOOD COUNT 2.86 X10e (3.90-5.30); RED CELL DISTRIBUTION WIDTH 17.6 % (11.0-15.5); WHITE BLOOD COUNT 6.1 X10e3 (4.0-10.5)
[2016-07-11 09:08] LABS: HEMATOCRIT 22.4 % (35.0-45.0); HEMOGLOBIN 7.3 gm/dL (12.0-16.0); MEAN CELL VOLUME 82.6 FL (83-96); MEAN CORPUSCULAR HEMOGLOBIN 26.9 PG (28-34); MEAN CORPUSCULAR HGB CONC 32.6 g/dL (30-36); MEAN PLATELET VOLUME 10.3 FL (6.5-11.5); RED BLOOD COUNT 2.71 X10e (3.90-5.30); RED CELL DISTRIBUTION WIDTH 17.4 % (11.0-15.5); WHITE BLOOD COUNT 5.4 X10e3 (4.0-10.5)
[2016-07-11 09:21] LABS: INR 1.4; PROTHROMBIN TIME (PATIENT) 14.8 SECONDS (9.6-11.5)
[2016-07-12 06:19] LABS: INR 1.6; PROTHROMBIN TIME (PATIENT) 16.7 SECONDS (9.6-11.5)
[2016-07-12 06:22] LABS: HEMATOCRIT 23.1 % (35.0-45.0); HEMOGLOBIN 7.3 gm/dL (12.0-16.0); MEAN CELL VOLUME 84.1 FL (83-96); MEAN CORPUSCULAR HEMOGLOBIN 26.7 PG (28-34); MEAN CORPUSCULAR HGB CONC 31.7 g/dL (30-36); MEAN PLATELET VOLUME 9.4 FL (6.5-11.5); RED BLOOD COUNT 2.75 X10e (3.90-5.30); RED CELL DISTRIBUTION WIDTH 17.6 % (11.0-15.5); WHITE BLOOD COUNT 6.5 X10e3 (4.0-10.5)
[2016-07-12 06:51] LABS: ALBUMIN SERUM 3.1 g/dL (3.5-5.0); BILIRUBIN,TOTAL 1.1 mg/dL (0.2-2.0); BUN/CREATININE RATIO 32.5; CALCIUM SERUM 8.2 mg/dL (8.4-10.2); CREATININE SERUM 0.8 mg/dL (0.6-1.4); GLOM FILT RATE Estimated 85.4 mL/min (>60); POTASSIUM 4.3 mmol/L (3.5-5.1); PROTEIN TOTAL SERUM 5.6 g/dL (6.0-8.3)
[2016-07-13 06:46] LABS: INR 1.4; PROTHROMBIN TIME (PATIENT) 14.7 SECONDS (9.6-11.5)
[2016-07-13 06:47] LABS: HEMATOCRIT 19.2 % (35.0-45.0); MEAN CORPUSCULAR HEMOGLOBIN 26.5 PG (28-34); MEAN PLATELET VOLUME 8.9 FL (6.5-11.5); RED BLOOD COUNT 2.32 X10e (3.90-5.30); RED CELL DISTRIBUTION WIDTH 17.9 % (11.0-15.5)
[2016-07-13 07:04] LABS: HEMOGLOBIN 6.1 gm/dL (12.0-16.0)
[2016-07-13 07:53] LABS: ALBUMIN SERUM 3.2 g/dL (3.5-5.0); BILIRUBIN,TOTAL 1.5 mg/dL (0.2-2.0); BUN/CREATININE RATIO 32.5; CALCIUM SERUM 8.3 mg/dL (8.4-10.2); CREATININE SERUM 0.8 mg/dL (0.6-1.4); GLOM FILT RATE Estimated 85.4 mL/min (>60); PROTEIN TOTAL SERUM 5.8 g/dL (6.0-8.3)
[2016-07-13 23:29] LABS: HEMATOCRIT 25.5 % (35.0-45.0); HEMOGLOBIN 8.4 gm/dL (12.0-16.0)
[2016-07-14 06:19] LABS: MEAN CELL VOLUME 82.6 FL (83-96); MEAN CORPUSCULAR HEMOGLOBIN 27.5 PG (28-34); MEAN CORPUSCULAR HGB CONC 33.3 g/dL (30-36); MEAN PLATELET VOLUME 8.4 FL (6.5-11.5); RED BLOOD COUNT 2.91 X10e (3.90-5.30); RED CELL DISTRIBUTION WIDTH 16.3 % (11.0-15.5); WHITE BLOOD COUNT 7.3 X10e3 (4.0-10.5)
[2016-07-14 06:53] LABS: ALBUMIN SERUM 3.1 g/dL (3.5-5.0); BILIRUBIN,TOTAL 1.8 mg/dL (0.2-2.0); BUN/CREATININE RATIO 33.75; CALCIUM SERUM 8.6 mg/dL (8.4-10.2); CREATININE SERUM 0.8 mg/dL (0.6-1.4); GLOM FILT RATE Estimated 85.4 mL/min (>60); POTASSIUM 4.1 mmol/L (3.5-5.1); PROTEIN TOTAL SERUM 5.6 g/dL (6.0-8.3)
[2016-07-15 06:22] LABS: HEMATOCRIT 23.1 % (35.0-45.0); HEMOGLOBIN 7.5 gm/dL (12.0-16.0); MEAN CORPUSCULAR HEMOGLOBIN 27.5 PG (28-34); MEAN CORPUSCULAR HGB CONC 32.3 g/dL (30-36); MEAN PLATELET VOLUME 9.5 FL (6.5-11.5); RED BLOOD COUNT 2.72 X10e (3.90-5.30); RED CELL DISTRIBUTION WIDTH 16.8 % (11.0-15.5); WHITE BLOOD COUNT 8.2 X10e3 (4.0-10.5)
[2016-07-15 06:36] LABS: ALBUMIN SERUM 3.1 g/dL (3.5-5.0); BILIRUBIN,TOTAL 1.8 mg/dL (0.2-2.0); BUN/CREATININE RATIO 35.55; CALCIUM SERUM 8.4 mg/dL (8.4-10.2); CREATININE SERUM 0.9 mg/dL (0.6-1.4); GLOM FILT RATE Estimated 74.1 mL/min (>60); POTASSIUM 4.5 mmol/L (3.5-5.1); PROTEIN TOTAL SERUM 5.7 g/dL (6.0-8.3)
[2016-07-15] MEDS ORDERED: COLACE PO (15:06)
[2016-07-15] MEDS ORDERED: MIRALAX17 G2 PO (15:07)
[2016-07-15] MEDS ORDERED: PERCOCET10 PO (15:08)
[2016-12-06] MEDS ORDERED: ALBUTEROL 0.5ML INH (08:39)
[2016-12-06] MEDS ORDERED: PRED FORTE1 ML OS (08:40)
[2016-12-06] MEDS ORDERED: ROPINIROLE HCL0.5 MG PO (08:41)
[2016-12-06] MEDS ORDERED: TRUSOPT10 ML OD (08:41)
[2016-12-06] MEDS ORDERED: HYDRALAZINE HC100 MG PO (08:42)
[2016-12-06] MEDS ORDERED: LIPITOR40 MG PO (08:43)
[2016-12-06] MEDS ORDERED: AMARYL PO (08:43)
[2016-12-06] MEDS ORDERED: OXYCODONE-ACET1 EAC1 PO (08:43)
[2016-12-06] MEDS ORDERED: ONGLYZA5 MG PO (08:44)
[2016-12-06] MEDS ORDERED: SENNA PO (08:44)
[2016-12-06] MEDS ORDERED: OXYGEN (08:45)
[2016-12-06] MEDS ORDERED: K-DUR20 ME1 PO (08:45)
[2016-12-06] MEDS ORDERED: HYDROXYZINE HCL25 M1 PO (08:46)
[2016-12-06] MEDS ORDERED: ZOFRAN PO (08:47)
== END 2016-07-15 16:54 | disposition home or self-care (01) | DRG 843 ==
LOC: CED 21:50 → CEDOF 21:51 → C3A PCU 07-09 17:00
PROVIDERS: Emergency Medicine; Family Medicine; Internal Medicine; Internal Medicine Gastroenterology; Internal Medicine Medical Oncology
PROC: 30233N1 Transfusion of Nonautologous Red Blood Cells into Peripheral Vein, Percutaneous Approach (ICD-10-PCS; principal; 2016-07-08)
PROC: 05H733Z Insertion of Infusion Device into Right Axillary Vein, Percutaneous Approach (ICD-10-PCS; 2016-07-08)
PROC: 30233K1 Transfusion of Nonautologous Frozen Plasma into Peripheral Vein, Percutaneous Approach (ICD-10-PCS; 2016-07-09)
PROC: 30233N1 Transfusion of Nonautologous Red Blood Cells into Peripheral Vein, Percutaneous Approach (ICD-10-PCS; 2016-07-09)
PROC: 0DJ08ZZ Inspection of Upper Intestinal Tract, Via Natural or Artificial Opening Endoscopic (ICD-10-PCS; 2016-07-09 10:00)
PROC: 30233N1 Transfusion of Nonautologous Red Blood Cells into Peripheral Vein, Percutaneous Approach (ICD-10-PCS; 2016-07-10)
PROC: 30233K1 Transfusion of Nonautologous Frozen Plasma into Peripheral Vein, Percutaneous Approach (ICD-10-PCS; 2016-07-10)
PROC: 30233K1 Transfusion of Nonautologous Frozen Plasma into Peripheral Vein, Percutaneous Approach (ICD-10-PCS; 2016-07-12)
DX: C7A.8 Other malignant neuroendocrine tumors (principal); D61.810 Antineoplastic chemotherapy induced pancytopenia; D68.4 Acquired coagulation factor deficiency; C78.7 Secondary malignant neoplasm of liver and intrahepatic bile duct; C79.51 Secondary malignant neoplasm of bone; E44.1 Mild protein-calorie malnutrition; L03.113 Cellulitis of right upper limb; I69.354 Hemiplegia and hemiparesis following cerebral infarction affecting left non-dominant side; D69.59 Other secondary thrombocytopenia; E66.01 Morbid (severe) obesity due to excess calories; E11.65 Type 2 diabetes mellitus with hyperglycemia; Z51.5 Encounter for palliative care; D64.81 Anemia due to antineoplastic chemotherapy; S40.021A Contusion of right upper arm, initial encounter; M19.90 Unspecified osteoarthritis, unspecified site; M79.81 Nontraumatic hematoma of soft tissue; E11.42 Type 2 diabetes mellitus with diabetic polyneuropathy; D63.0 Anemia in neoplastic disease; I10 Essential (primary) hypertension; E78.5 Hyperlipidemia, unspecified; H40.9 Unspecified glaucoma; K29.70 Gastritis, unspecified, without bleeding; Z90.710 Acquired absence of both cervix and uterus; Z98.84 Bariatric surgery status; Z68.34 Body mass index [BMI] 34.0-34.9, adult
CPT/HCPCS: 71010; 80048; 80053; 80076; 81003; 82553; 82947; 84484; 85014; 85018; 85025; 85027; 85610; 85730; 86850; 86900; 86901; 86923; 87086; 88305; 88312; 93005; 93971; 94640; 94664; 94760; 99285; C9113; J0696; J1815; J1940; J2250; J2270; J2405; J3010; J3430; P9016; P9059

== ENCOUNTER → 2016-11-14 | Outpatient (CLI) | payer OTHER ==
[~2016-11-14] MED LIST changes: +ALBUTEROL 0.5ML INH; +COLACE PO; +HYDRALAZINE HC100 MG PO; +HYDROXYZINE HCL25 M1 PO; +K-DUR20 ME1 PO; +MIRALAX17 G2 PO; +ONGLYZA5 MG PO; +OXYGEN; +PERCOCET10 PO; +PRED FORTE1 ML OS; +SENNA PO; +TRUSOPT10 ML OD; +ZOFRAN PO
--- NOTE | ~2016-11-14 | CR172 ---
[facility] A Service of [facility] RADIOLOGY TEXT RESULTS PATIENT: KASH ASCENCIO LOCATION: [facility] : 44 UNIT #: [id number] AGE: [address]: FAINA QUINTANILLA MD SEX: F ORDER DR: [id number] [place] [id number] [facility]. [place], [place] [address] [id number] O MR#: [id number] Acc #: [id number] NAME: KASH ASCENCIO. : 1945 SEX: F STUDY DATE/TIME: 11/14/2016 10:49 UNIT: [facility] ROOM: STUDY DESCRIPTION: CR Knee 3 Views Lt Attending Physician: Faina Quintanilla M.D. Referring Physician: Faina Quintanilla M.D. Ordering Physician: Faina Quintanilla M.D. Primary Care Physician: Faina Quintanilla M.D. MEDICAL IMAGING REPORT This report is preliminary unless electronic signature is present EXAM Three views left knee. DATE 11/14/2016 HISTORY 71-year-old female left frontal knee pain since this morning. No documented injury. COMPARISON Left femur radiographs, 12/24/2015. FINDINGS There is prominent enthesophyte formation at the anterior patella involving the quadriceps and patellar tendon insertions, quite similar to the 12/24/2015 exam. No joint effusion is seen. The patella remains appropriately located. Chondrocalcinosis changes are demonstrated within the menisci. The knee joint spaces, however, appear fairly well preserved. Calcific atherosclerotic changes are demonstrated. IMPRESSION 1. Enthesophyte formation at the quadriceps and patellar tendon insertions upon the anterior patella, not appreciably changed from prior. 2. The knee joint spaces appear preserved. No acute osseous abnormality. Dictated by... Kaylin Munoz M.D. THIS IS AN ELECTRONICALLY VERIFIED REPORT [facility] A Service of [facility] RADIOLOGY TEXT RESULTS PATIENT: KASH ASCENCIO LOCATION: [facility] : 44 UNIT #: [id number] AGE: [address]: FAINA QUINTANILLA MD SEX: F ORDER DR: Kaylin Munoz M.D. at 11/15/2016 8:56 AM DANIELLE/jose TD: 11/14/2016 16:34 JOB #: [id number] MEDICAL IMAGING REPORT Page 1 of 1 COPY
== END | disposition home or self-care (01) ==
LOC: CRAD 10:31
DX: M25.562 Pain in left knee (principal); M76.52 Patellar tendinitis, left knee
CPT/HCPCS: 73562

== ENCOUNTER → 2016-12-06 | Day surgery (SDC) | payer OTHER ==
--- NOTE | ~2016-12-06 | OR ---
Unit #: [id number] #: [id number] Patient: KASH ASCENCIO [id number] [address] [place], [place] [address] [id number] MR#: [id number] NAME: KASH ASCENCIO ROOM: Date of Procedure: 12/06/2016 Admission Date: 12/06/2016 Surgeon: Honorio Aponte M.D. : 1945 Attending Physician: Honorio Aponte M.D. Referring Physician: Honorio Aponte M.D. Primary Care Physician: Wilman Mcghee M.D. OPERATIVE REPORT PREOPERATIVE DIAGNOSES Back pain, radiculopathy, lumbar disk herniation, degenerative disk and spine disease. POSTOPERATIVE DIAGNOSIS Back pain, radiculopathy, lumbar disk herniation, degenerative disk and spine disease. PROCEDURE PERFORMED Lumbar epidural steroid injection with intravenous sedation and fluoroscopic guidance for needle localization. INDICATIONS FOR PROCEDURE The patient is a 71-year-old female, who had return of back and lower extremity pain associated with previously mentioned diagnosis. She is not a surgical candidate. She was last treated with an epidural steroid injections done singly in 04/2016 that helped for about 7 to 8 months. Prior to that, a single injection also been helpful for about 6 months. Based on history, pathology, symptomatology, and treatment options, and response to treatment, we are going to proceed with a repeat single lumbar epidural steroid injection today. DESCRIPTION OF PROCEDURE The patient was placed in a seated position. Standard monitors were applied. 2 mg of Versed were given for sedation and anxiolysis, which were adequate. Vital signs remained stable. Sterile prep and drape then of the lumbar area was performed. The skin then at the L4-L5 level was localized with 1% lidocaine. An 18-gauge bizk.ittead needle was then advanced via loss of resistance technique and fluoroscopic guidance in toward the epidural space. After confirming proper positioning with fluoroscopy and radiographic contrast, 80 mg of Depo-Medrol and 4 mL of 0.125% bupivacaine were deposited. The patient tolerated the procedure otherwise well and was discharged to the recovery room in stable condition. Dictated by... Cassandra JerniganP/juan TD: 12/06/2016 14:41 JOB #: [id number] Unit #: [id number] #: [id number] Patient: KASH ASCENCIO CC: [facility] OPERATIVE REPORT Page 1 of 1 X Honorio Aponte MD X PROCEDURE OPERATIVE NOTE
== END | disposition home or self-care (01) ==
LOC: CCSC 08:18
DX: M51.16 Intervertebral disc disorders with radiculopathy, lumbar region (principal); E11.9 Type 2 diabetes mellitus without complications; I10 Essential (primary) hypertension; M19.90 Unspecified osteoarthritis, unspecified site; E66.01 Morbid (severe) obesity due to excess calories; K21.9 Gastro-esophageal reflux disease without esophagitis; Z88.8 Allergy status to other drugs, medicaments and biological substances; Z79.899 Other long term (current) drug therapy
CPT/HCPCS: 82947; J1040; J1642; J2250